=== PATIENT | female | born 1950 | race Caucasian/White ===

== ENCOUNTER 2021-02-28 08:41 | Day surgery (SDC) | payer MEDICARE, OTHER ==
[2021-02-27 12:02] LABS: ALBUMIN 3.8 g/dL (3.4-5.0); ANION GAP 6 mmol/L (5-15); CALCIUM 9.4 mg/dL (8.5-10.1); CHLORIDE 110 mmol/L (98-107)
[2021-02-27 12:06] LABS: ALANINE AMINOTRANSFERASE 20 U/L (12-78); ALKALINE PHOSPHATASE 136 U/L (45-117)
[~2021-02-28] VITALS: Ht 167.6 cm; Wt 102.5 kg
[~2021-02-28 08:41] MED LIST: AMLO-150 PO; ASPI81TA45 PO; AZEL6DRO2 EACHEYE; CALC-42 PO; CHOL10003 PO; LOSA50TA14 PO; MONT10TA6 PO; OMEP20TA62 PO; PRAV40TA2 PO; SERT100T PO; ZOLP-413 PO
[2021-02-28 10:10] VITALS: BP 168/91
[2021-02-28] MEDS ORDERED: MIDAZOLAM 1 MG/ML, 2ML ONE (10:22)
[2021-02-28] MEDS ORDERED: FENTANYL PF 100 MCG/2ML ONE (10:22)
[2021-02-28] MEDS ORDERED: LACTATED RINGERS 1,000 ML IV SCH (10:30)
[2021-02-28] MEDS ORDERED: LABETALOL 5MG/ML, 20ML IV PRN (10:30)
[2021-02-28] MEDS ORDERED: CHLORHEXIDINE 15 ML UDC PO ONE (10:30)
[2021-02-28] MEDS ORDERED: FENTANYL PF 100 MCG/2ML IV PRN (10:30)
[2021-02-28] MEDS ORDERED: MIDAZOLAM 1 MG/ML, 2ML IV PRN (10:30)
[2021-02-28] MEDS ORDERED: ALBUTEROL SULFATE 2.5 MG/3 ML NPPB PRN (10:30)
[2021-02-28] MEDS ORDERED: MEPERIDINE/PF 25MG/0.5ML IVPush PRN (10:30)
[2021-02-28] MEDS ORDERED: OXYcodone 5 MG/5 ML ORAL.SOL UDC PO PRN (10:30)
[2021-02-28] MEDS ORDERED: PROMETHAZINE 25 MG/ML, 1ML IVPush PRN (10:30)
[2021-02-28] MEDS ORDERED: ACETAMINOPHEN 325 MG TABLET PO PRN (10:30)
[2021-02-28] MEDS ORDERED: HYDROmorphone 1 MG/ML, 1ML INJ IVPush PRN (10:30)
[2021-02-28] MEDS ORDERED: EPHEDRINE 50 MG/ML, 1ML ONE (10:52)
[2021-02-28] MEDS ORDERED: ONDANSETRON 2MG/ML, 2ML ONE (11:21)
[2021-02-28] MEDS ORDERED: LIDOCAINE-MPF 2% ,5ML ONE (11:21)
[2021-02-28] MEDS ORDERED: PROPOFOL 10 MG/ML, 20ML ONE (11:21)
[2021-02-28] MEDS ORDERED: DEXAMETHASONE 4 MG/ML, 1ML ONE (11:21)
[2021-02-28] MEDS ORDERED: CEFAZOLIN 1,000 MG ONE (11:21)
[2021-02-28] MEDS ORDERED: BUPIVACAINE/PF 0.5% ONE (11:21)
== END 2021-02-28 14:15 | disposition home or self-care (01) ==
LOC: OUT 08:41
PROVIDERS: ATTEND Orthopaedic Surgery
DX: S52.571A Other intraarticular fracture of lower end of right radius, initial encounter for closed fracture (principal); G89.18 Other acute postprocedural pain; I10 Essential (primary) hypertension; K21.9 Gastro-esophageal reflux disease without esophagitis; E78.5 Hyperlipidemia, unspecified; G47.30 Sleep apnea, unspecified; E66.9 Obesity, unspecified; Z20.822 Contact with and (suspected) exposure to COVID-19; Z79.82 Long term (current) use of aspirin; Z79.899 Other long term (current) drug therapy; Z88.2 Allergy status to sulfonamides; Z88.5 Allergy status to narcotic agent; Z82.61 Family history of arthritis; Z82.49 Family history of ischemic heart disease and other diseases of the circulatory system; W01.0XXA Fall on same level from slipping, tripping and stumbling without subsequent striking against object, initial encounter; Y93.89 Activity, other specified; Y92.89 Other specified places as the place of occurrence of the external cause; Y99.8 Other external cause status
CPT/HCPCS: 25609; 36415; 64415; 73100; 80053; 93005; C1713; C1776; J0690; J1100; J2250; J2405; J2704; J3010; J7120; U0003; U0005; 76000